=== PATIENT | male | born 1935 | race Caucasian/White ===

== ENCOUNTER 2019-11-16 14:11 | Inpatient (IN) | payer MEDICARE ==
[~2019-11-16] VITALS: Ht 180.3 cm; Wt 88.6 kg
[2019-11-16 15:03] LABS: BASO # 0.1 (0.0-0.2); EOS # 0.1 (0.0-0.7); EOS % 1.6 % (0-4.0); GRAN # 3.9 (1.4-6.5); GRAN % 68.9 % (42.2-75.2); HEMATOCRIT 41.7 % (42.0-52.0); HEMOGLOBIN 14.3 g/dl (13.5-18.0); LYMPH # 1.1 (1.2-3.4); LYMPH % 19.2 % (20.0-51.0); MEAN CELL VOLUME 101 fl (80.0-100.0); MEAN CORPUSCULAR HEMOGLOBIN 35 pg (27.0-31.0); MEAN CORPUSCULAR HGB CONC 34 g/dl (33.0-37.0); MEAN PLATELET VOLUME 10.9 fl (7.4-10.4); MONO # 0.5 (0.1-0.6); MONO % 9.1 % (1.7-9.3); PLATELET COUNT 177 K/mm3 (130-400); RED BLOOD COUNT 4.15 M/mm3 (4.20-5.60); REDCELL DISTRIBUTION WIDTH-CV 11.7 % (11.5-14.5)
[2019-11-16 15:06] LABS: ALANINE AMINOTRANSFERASE 29 U/L (21-72); ALBUMIN 4.6 gm/dL (3.5-5.0); ALKALINE PHOSPHATASE 100 U/L (50-136); ANION GAP 11 mmol/L (7-16); AST,SGOT 37 U/L (15-37); BILIRUBIN,TOTAL 0.8 mg/dL (0.0-1.0); BLOOD UREA NITROGEN 20 mg/dL (9-20); CALCIUM 9.4 mg/dL (8.4-10.2); CARBON DIOXIDE 21 mmol/L (22-30); CHLORIDE 110 mmol/L (98-107); CREATININE, serum 0.87 (0.66-1.25); GLUCOSE 93 mg/dL (74-106); POTASSIUM 3.7 mmol/L (3.4-5.0); SODIUM 142 mmol/L (137-145); TOTAL PROTEIN 7.1 gm/dL (6.4-8.2)
[2019-11-16 15:14] LABS: INR 1.1 (0.8-3.0); PROTHROMBIN TIME 12.8 SECONDS (9.7-12.8)
[2019-11-16 15:17] LABS: C-REACTIVE PROTEIN < 0.5 mg/dL (0.0-0.9); TROPONIN-I < 0.012 ng/mL (0.000-0.035)
[2019-11-16 15:20] LABS: D-DIMER < 200.00 ng/mLDDu (200-230)
[2019-11-16] MEDS ORDERED: ELIQUIS 5MG PO (17:01)
[2019-11-16] MEDS ORDERED: ZOLOFT 100MG100 MG PO (17:01)
[2019-11-16] MEDS ORDERED: SYNTHROID 0.10.15 MG PO (17:02)
[2019-11-16] MEDS ORDERED: AMBIEN 10MG10 MG PO (17:02)
--- NOTE | 2019-11-16 18:45 | NUR ---
Pt arrives to medical unit rm [id number] from ED, sitting up on side of bed, A&O x 4, requesting something to eat. Culinary support called.
[2019-11-16 18:55] VITALS: BP 115/83; PULSE 78; TEMP 98.3
--- NOTE | 2019-11-16 19:45 | NUR ---
Report to GINO Yeh. Pt sitting up in chair, denies needs. Pt reminded not to get up without assistance. Call light in reach.
[2019-11-16] MEDS ORDERED: SELENIUM200 MC5 (20:46)
[2019-11-16] MEDS ORDERED: VITAMIN B100 CO1 TAB (20:46)
[2019-11-16] MEDS ORDERED: MULTIPLE VITAMI1 CAP PO (20:47)
[2019-11-17] VITALS (7 sets, daily range): BP systolic 95–137; BP diastolic 46–73; PULSE 56–88; TEMP 97.7–98.5
--- NOTE | 2019-11-17 04:41 | NUR ---
Patient arrived to the floor just before shift change. 5 page and med-rec completed. Patient requests not having vitamins given to him while he is in the hospital d/t cost. Patient's medications sent to pharmacy. Complains of dizziness and that the room is spinning when he changes position, but its worse when he lies down. Bed alarm set. Patient states he can get up on his own and that he "will be fine". Education attempted to call, but patient has disregarded this. Ambulates with SBA with cane to bathroom. Complained of a headache and tylenol was administered. This was effective. Will continue to monitor.
--- NOTE | 2019-11-17 08:00 | NUR ---
PATIENT IS A&O. VSS. PATIENT REPORTS DIZZINESS WITH ACTIVITY. PATIENT DENIES DIZZINESS AT REST. PATIENT DENIES CHEST PAIN OR SOA. ECHO ORDERED FOR TODAY. TROPONINS ARE NEGATIVE. PATIENT HAS HX OF PE & DVT AND TAKES ELEQUIS. SR ON TELE IN THE 60'S. NEURO CHECKS WNL. LEFT WRIST IV TO INT. DNR. HEAD TO TOE WNL. PATIENT HOPING TO DISCHARGE TODAY. WAITING FOR PHYSICIANS TO ROUND.
--- NOTE | 2019-11-17 11:53 | NUR ---
JO-ANN met with the patient to discuss discharge plan. The patient lives alone in [place]. He states that he moved here from [place] a year and a half ago and has been staying at his [id number]'s home. He states that his [id number] now resides at [facility]. He reports independence with ADLs and has a cane. The patient does not have a PCP in [place], but he was interested in getting set up with one. JO-ANN informed the patient of the different clinics in [place]. The patient preferred a male PCP and was interested in [facility]. JO-ANN contacted [facility] and secured the patient an appointment with Dr. Ori Daniel on Wednesday, 11/24, at 1445. JO-ANN faxed the patient's records to [facility]. JO-ANN informed the director of community education, his PA-C, and the patient of the appointment. The patient receives his medications at [facility] and he reports no difficulties obtaining his meds. The patient does not have advanced directives in EMR, but he states that he does have them completed. He states that his DPOA-HC is his ex-, Faith ([phone]). He states that him and Faith are still in the process of divorce, but that he would still want her as his DPOA-HC, for now. The patient plans to return home upon discharge. No additional needs at this time.
[2019-11-17 12:33] LABS: BASO # 0.1 (0.0-0.2); BASO % 1.4 % (0.0-2.0); EOS # 0.1 (0.0-0.7); EOS % 2.9 % (0-4.0); GRAN # 2.6 (1.4-6.5); GRAN % 62.4 % (42.2-75.2); HEMATOCRIT 40.6 % (42.0-52.0); HEMOGLOBIN 13.9 g/dl (13.5-18.0); LYMPH # 0.9 (1.2-3.4); LYMPH % 21.3 % (20.0-51.0); MEAN CELL VOLUME 101 fl (80.0-100.0); MEAN CORPUSCULAR HEMOGLOBIN 35 pg (27.0-31.0); MEAN CORPUSCULAR HGB CONC 34 g/dl (33.0-37.0); MEAN PLATELET VOLUME 10.9 fl (7.4-10.4); MONO # 0.5 (0.1-0.6); MONO % 11.8 % (1.7-9.3); PLATELET COUNT 174 K/mm3 (130-400); RED BLOOD COUNT 4.01 M/mm3 (4.20-5.60); REDCELL DISTRIBUTION WIDTH-CV 11.7 % (11.5-14.5)
[2019-11-17 12:55] LABS: INR 1.2 (0.8-3.0); PROTHROMBIN TIME 13.7 SECONDS (9.7-12.8)
[2019-11-17 13:46] LABS: ALBUMIN 4.2 gm/dL (3.5-5.0); BILIRUBIN,TOTAL 0.8 mg/dL (0.0-1.0); CALCIUM 8.9 mg/dL (8.4-10.2); CREATININE, serum 0.87 (0.66-1.25); POTASSIUM 4.1 mmol/L (3.4-5.0); TOTAL PROTEIN 6.5 gm/dL (6.4-8.2)
--- NOTE | 2019-11-17 16:30 | NUR ---
PATIENT C/O ENNIS. GAVE PRN TYLENOL, TWO TABS.
--- NOTE | 2019-11-17 20:12 | NUR ---
Lying in bed on right side with eyes open. Patient says that he is tired and hopes to get sleep tonight. Denies any pain or needs at this time.
--- NOTE | 2019-11-17 20:19 | NUR ---
Sam administered per patient request for sleep aide. Denies further needs.
--- NOTE | 2019-11-17 23:38 | NUR ---
Lying in bed with eyes closed. Eyes open when name called out. Denies pain. Alert and oriented. Neuro checks normal. Patient ambulates to bathroom to void and then returns to bed. Denies any further needs at this time.
--- NOTE | 2019-11-18 00:58 | NUR ---
Lying in bed on left side with eyes closed. Respirations even and unlabored. No signs or symptoms of discomfort noted at this time.
[2019-11-18 03:30] VITALS: BP 94/46; PULSE 54; TEMP 98
--- NOTE | 2019-11-18 03:43 | NUR ---
Lying in bed with eyes closed. Opens eyes when name called out. Denies any pain or discomforts. Neuro checks remain normal. Patient denies needs at this time. Explains that he would like to get sleep at this time.
--- NOTE | 2019-11-18 05:27 | NUR ---
Lying in bed on right side with eyes open. Denies pain or any feeling of lightheadedness or dizziness. Patient denies any needs or concerns at this time.
[2019-11-18 07:14] VITALS: BP 121/64; PULSE 62; TEMP 98
[2019-11-18 08:47] LABS: BASO # 0.1 (0.0-0.2); BASO % 1.7 % (0.0-2.0); EOS # 0.2 (0.0-0.7); EOS % 4.4 % (0-4.0); GRAN # 2.8 (1.4-6.5); GRAN % 66.9 % (42.2-75.2); HEMATOCRIT 40.9 % (42.0-52.0); HEMOGLOBIN 13.8 g/dl (13.5-18.0); LYMPH # 0.6 (1.2-3.4); LYMPH % 14.5 % (20.0-51.0); MEAN CELL VOLUME 102 fl (80.0-100.0); MEAN CORPUSCULAR HEMOGLOBIN 35 pg (27.0-31.0); MEAN CORPUSCULAR HGB CONC 34 g/dl (33.0-37.0); MEAN PLATELET VOLUME 11.4 fl (7.4-10.4); MONO # 0.5 (0.1-0.6); MONO % 12.3 % (1.7-9.3); PLATELET COUNT 177 K/mm3 (130-400); REDCELL DISTRIBUTION WIDTH-CV 11.6 % (11.5-14.5)
[2019-11-18 08:48] LABS: CALCIUM 9.2 mg/dL (8.4-10.2); CREATININE, serum 0.91 (0.66-1.25); MAGNESIUM 1.9 mg/dL (1.6-2.3); POTASSIUM 4.2 mmol/L (3.4-5.0)
[2019-11-18 08:51] LABS: PROTHROMBIN TIME 12.2 SECONDS (9.7-12.8)
--- NOTE | 2019-11-18 10:09 | NUR ---
Pt awake and alert, talkative, steady gait using cane, shift assessments complete, no C/O pain at this time, left Pt call light in reach.
[2019-11-18 11:15] VITALS: BP 117/65; PULSE 61; TEMP 98
[2019-11-18 16:11] VITALS: BP 117/71; PULSE 63; TEMP 98.3
--- NOTE | 2019-11-18 16:30 | NUR ---
Pt has C/O minor headache, tylenol given for relief.
--- NOTE | 2019-11-18 18:10 | NUR ---
Pt resting in the room, ambulating in the room and hallway without issues using his cane, had mild headache early this afternoon medications given and relief obtained, VS have remained stable.
[2019-11-18 22:31] VITALS: BP 116/56; PULSE 59; TEMP 98.1
[2019-11-19 03:59] VITALS: BP 111/62; PULSE 60; TEMP 98.8
--- NOTE | 2019-11-19 05:23 | NUR ---
PT SLEEPING. PT DENIES PAIN, SYNCOPE OR SHORTNESS OF BREATH. NO N/V. INDEPENDENT IN ROOM.
[2019-11-19 07:38] VITALS: BP 116/64; PULSE 60; TEMP 98.7
[2019-11-19 08:30] LABS: BASO # 0.1 (0.0-0.2); BASO % 1.2 % (0.0-2.0); EOS # 0.1 (0.0-0.7); EOS % 2.9 % (0-4.0); GRAN # 3.5 (1.4-6.5); GRAN % 71.6 % (42.2-75.2); HEMATOCRIT 41.7 % (42.0-52.0); HEMOGLOBIN 14.2 g/dl (13.5-18.0); LYMPH # 0.6 (1.2-3.4); LYMPH % 13.2 % (20.0-51.0); MEAN CELL VOLUME 100 fl (80.0-100.0); MEAN CORPUSCULAR HEMOGLOBIN 34 pg (27.0-31.0); MEAN CORPUSCULAR HGB CONC 34 g/dl (33.0-37.0); MEAN PLATELET VOLUME 11.4 fl (7.4-10.4); MONO # 0.5 (0.1-0.6); MONO % 10.1 % (1.7-9.3); PLATELET COUNT 182 K/mm3 (130-400); RED BLOOD COUNT 4.16 M/mm3 (4.20-5.60); REDCELL DISTRIBUTION WIDTH-CV 11.7 % (11.5-14.5)
[2019-11-19 08:34] LABS: INR 1.1 (0.8-3.0); PROTHROMBIN TIME 12.8 SECONDS (9.7-12.8)
[2019-11-19 08:47] LABS: CALCIUM 9.3 mg/dL (8.4-10.2); CREATININE, serum 0.88 (0.66-1.25); POTASSIUM 4.2 mmol/L (3.4-5.0)
--- NOTE | 2019-11-19 09:01 | NUR ---
Pt awake and alert, up ambulating in the room, steady on his feet, talkative, expresses desire to return home, shift assessments complete.
[2019-11-19 12:07] VITALS: BP 125/61; PULSE 55
[2019-11-19] MEDS ORDERED: BETAPACE 80MG80 MG PO (14:01)
--- NOTE | 2019-11-19 14:53 | NUR ---
Pt discharged to home, escorted to entrance, Pt left via private transportation.
== END 2019-11-19 14:54 | disposition home or self-care (01) | DRG 310 ==
LOC: COL.ER 14:11 → MEDICAL 16:17
PROVIDERS: Emergency Medicine; Nurse Practitioner; Physician Assistant; ADMIT Hospitalist
DX: I48.0 Paroxysmal atrial fibrillation (principal); E89.0 Postprocedural hypothyroidism; R07.89 Other chest pain; Z86.711 Personal history of pulmonary embolism; Z86.718 Personal history of other venous thrombosis and embolism; Z90.49 Acquired absence of other specified parts of digestive tract; Z85.72 Personal history of non-Hodgkin lymphomas; Z79.01 Long term (current) use of anticoagulants; Z87.891 Personal history of nicotine dependence; Z88.2 Allergy status to sulfonamides; Z95.828 Presence of other vascular implants and grafts
CPT/HCPCS: 99232-AI; 99233-AI; G0378; J2060; J7030

== ENCOUNTER 2020-09-21 09:29 | Observation (INO) | payer MEDICARE ==
[~2020-09-21] VITALS: Ht 180.3 cm; Wt 86.5 kg
[~2020-09-21 09:29] MED LIST: AMBIEN 10MG10 MG PO; ASPIRIN 81M81 MG/TA2 PO; BETAPACE 80MG80 MG PO; BRILINTA90 MG PO; COUMADIN 5MG5 MG/TAB PO; ELIQUIS 5MG PO; LIPITOR 40MG TA40 MG PO; MULTIPLE VITAMI1 TA5 PO; SELENIUM200 MC5; SYNTHROID 0.10.15 MG PO; VANCOCIN H125 MG/CAP PO; VITAMIN B100 CO1 TAB; ZOLOFT 100MG100 MG PO
[2020-09-21 10:20] LABS: HEMATOCRIT 38.6 % (42.0-52.0); HEMOGLOBIN 12.9 g/dl (13.5-18.0); MEAN CELL VOLUME 102 fl (80.0-100.0); MEAN CORPUSCULAR HEMOGLOBIN 34 pg (27.0-31.0); MEAN CORPUSCULAR HGB CONC 33 g/dl (33.0-37.0); MEAN PLATELET VOLUME 10.7 fl (7.4-10.4); PLATELET COUNT 207 K/mm3 (130-400); RED BLOOD COUNT 3.78 M/mm3 (4.20-5.60)
[2020-09-21 10:35] LABS: ALBUMIN 3.9 gm/dL (3.5-5.0); BILIRUBIN,TOTAL 1.2 mg/dL (0.0-1.0); CALCIUM 8.6 mg/dL (8.4-10.2); CREATININE, serum 0.98 (0.66-1.25); POTASSIUM 3.9 mmol/L (3.4-5.0); TOTAL PROTEIN 6.6 gm/dL (6.4-8.2)
[2020-09-21 10:43] LABS: BAND 47 % (0-10); LYMPHOCYTE 4 % (20.0-51.0); NEUTROPHILS 40 % (42.0-75.2)
[2020-09-21 10:44] LABS: PLATELET ESTIMATE NORMAL (NORMAL); TOXIC GRANULATION PRESENT
[2020-09-21 10:51] LABS: C-REACTIVE PROTEIN 15.9 mg/dL (0.0-0.9)
[2020-09-21 11:04] LABS: COLLECTION METHOD CLEAN CATCH
[2020-09-21 11:20] LABS: MUCOUS Present /lpf; PH 5 (5-8); SQUAMOUS EPITHELIAL 0-2 /hpf; URINE APPEARANCE Hazy; URINE BACTERIA None Seen /hpf; URINE BILIRUBIN Negative (NEGATIVE); URINE BLOOD Negative (NEGATIVE); URINE COLOR Yellow; URINE GLUCOSE Negative (NEGATIVE); URINE KETONE 1+ (NEGATIVE); URINE LEUKOCYTE ESTERASE Negative (NEGATIVE); URINE NITRATE Negative (NEGATIVE); URINE PROTEIN(semi-quant) Negative (NEGATIVE); URINE RBC 0-2 /hpf; URINE UROBILINOGEN Negative (NEGATIVE)
[2020-09-21 12:15] LABS: INR 1.8 (0.8-3.0); PROTHROMBIN TIME 20.2 SECONDS (9.7-12.8)
[2020-09-21 14:37] LABS: CLOSTRIDIUM DIFF A/B NEG; CLOSTRIDIUM DIFF A/B INTERP NonToxigenic C.diff
--- NOTE | 2020-09-21 15:00 | NUR ---
Patient up from ER, alert and oriented x 3. Patient oriented to room. Assessment complete. Denies pain at this time. Patient up to restroom, having loose green stools. Steady gait with walker. Denies further needs at this time. INT to LAC noted.
[2020-09-21 15:14] VITALS: BP 115/54; PULSE 73; TEMP 97.9
--- NOTE | 2020-09-21 18:53 | NUR ---
Patient has done well since up from ER. Has been up to comode multiple times, having green stool. Fluids infusing per orders. Denies pain or further needs at this time. Will report off to shift manager.
[2020-09-22 06:21] VITALS: BP 112/55; PULSE 73; TEMP 98.1
[2020-09-22 07:38] VITALS: BP 115/46; PULSE 74; TEMP 97.2
--- NOTE | 2020-09-22 08:33 | NUR ---
PT IN CONTACT ISOLATION WITH HX OF MRSA. HAVING VERY LOOSE MUCOUSY DARK GREEN BM'S. UP SEVERAL TIMES DURING THE NIGHT WITH THE LAST TWO TIMES HAVING NO BM'S JUST URINE. TELE ON. NS INFUSING IN R AC AT 125ML/HR. TAKES DIET WELL. SM SKIN ABRASION ON RIGHT KNEE. CALL LIGHT IN REACH. BED ALARM ON DURING THIS SHIFT.
[2020-09-22 09:31] LABS: BASO % 0.4 % (0.0-2.0); EOS # 0.2 (0.0-0.7); EOS % 3.1 % (0-4.0); GRAN # 5.2 (1.4-6.5); GRAN % 77.4 % (42.2-75.2); LYMPH # 0.6 (1.2-3.4); LYMPH % 8.1 % (20.0-51.0); MEAN CELL VOLUME 104 fl (80.0-100.0); MEAN CORPUSCULAR HGB CONC 32 g/dl (33.0-37.0); MEAN PLATELET VOLUME 10.5 fl (7.4-10.4); MONO # 0.7 (0.1-0.6); MONO % 10.7 % (1.7-9.3); PLATELET COUNT 161 K/mm3 (130-400); RED BLOOD COUNT 3.14 M/mm3 (4.20-5.60); REDCELL DISTRIBUTION WIDTH-CV 13.2 % (11.5-14.5)
[2020-09-22 09:33] LABS: CALCIUM 7.9 mg/dL (8.4-10.2); CREATININE, serum 0.89 (0.66-1.25); POTASSIUM 3.3 mmol/L (3.4-5.0)
[2020-09-22 09:42] LABS: HEMATOCRIT 32.5 % (42.0-52.0); HEMOGLOBIN 10.5 g/dl (13.5-18.0); MEAN CORPUSCULAR HEMOGLOBIN 33 pg (27.0-31.0)
[2020-09-22 09:45] LABS: TROPONIN-I 0.017 ng/mL (0.000-0.035)
--- NOTE | 2020-09-22 10:42 | NUR ---
SW met with patient to complete intake. Patient states that he currently lives in [place] at his brother in laws home due to his of 40 plus years no longer wanting to be to him. Patient provides that his is still documented as his DP-HC [facility] [phone] and that he would like to leave it that way for the time being. Patient states that he has only used a walker the last few days and does not know how much longer he will need to use it, but will use it as long as he needs to since the walker he currently has is his sister's that has . Patient states that he is independent with ADL's, PCP is Dr. Funes, pharmacy is [email or web address]. Patient states that his plan his to go back to his brother in -laws home here in [place] up discharge. Patient states that his brother in law utilizes a HH service and didn't know if he would need that service upon DC. SW provided list of HH agencies to review. Patient provided that he did not want to make a choice yet on a service if needed, but wanted to check with his brother in law to see which one he uses. Patient stated he would contact SW to let them know. SW will continue to follow.
[2020-09-22 11:52] VITALS: BP 127/58; PULSE 64; TEMP 98.4
[2020-09-22 15:26] VITALS: BP 122/62; PULSE 69; TEMP 97.6
[2020-09-22 19:55] VITALS: BP 118/68; PULSE 70; TEMP 98
[2020-09-22 23:33] VITALS: BP 115/54; PULSE 62; TEMP 98.1
--- NOTE | 2020-09-23 03:33 | NUR ---
PT HAD SEVERAL SMALL LOOSE STOOLS. TRAMADOL AND TYLENOL FOR LEFT HIP DISCOMFORT. UP TO TOILET WITH STANDBY ASSIST.
[2020-09-23 04:00] VITALS: BP 109/51; PULSE 69; TEMP 98.3
[2020-09-23 06:47] LABS: HEMATOCRIT 31.4 % (42.0-52.0); HEMOGLOBIN 10.3 g/dl (13.5-18.0); MEAN CELL VOLUME 102 fl (80.0-100.0); MEAN CORPUSCULAR HEMOGLOBIN 34 pg (27.0-31.0); MEAN CORPUSCULAR HGB CONC 33 g/dl (33.0-37.0); MEAN PLATELET VOLUME 11.4 fl (7.4-10.4); PLATELET COUNT 162 K/mm3 (130-400); RED BLOOD COUNT 3.07 M/mm3 (4.20-5.60)
[2020-09-23 07:00] LABS: CREATININE, serum 0.8 (0.66-1.25); MAGNESIUM 1.8 mg/dL (1.6-2.3); POTASSIUM 3.4 mmol/L (3.4-5.0)
[2020-09-23 07:07] LABS: BAND 11 % (0-10); BASOPHIL 1 % (0-2); EOSINOPHIL 3 % (0-4); LYMPHOCYTE 9 % (20.0-51.0); NEUTROPHILS 62 % (42.0-75.2); PLATELET ESTIMATE NORMAL (NORMAL)
[2020-09-23 07:23] VITALS: BP 125/60; PULSE 73; TEMP 97.6
--- NOTE | 2020-09-23 08:00 | NUR ---
PATIENT IS A&O. VSS WITH TELE INPLACE. PATIENT C/O LEFT HIP PAIN FROM HX OF FALLS. GAVE PRN ULTRAM & TYLENOL WITH AM MEDS. PATIENT UP TO BEDSIDE COMMODE WITH STAND BY ASSIST. NOTED SOFT, SEMI-FORMED STOOL. ABD IS ROUND, SOFT AND WITH POSITIVE BOWL SOUNDS. HEAD TO TOE ASSESSMENT COMPLETE. NOTED +1 BLE EDEMA WHICH PATIENT REPORTS IS CHRONIC FOR HIM. PT/OT CONSULTED. SOCICAL SERVICES WORKING ON PLACEMENT.
--- NOTE | 2020-09-23 11:09 | NUR ---
Television Picture Tube Rebuilder attended clinical rounds with the team. The patient was agreeable to sending referrals for post acute rehab. His first choice is [facility]. Referrals also sent to [facility], and [facility]. SW informed facilites of the referral.
[2020-09-23 11:11] VITALS: BP 114/63; PULSE 71; TEMP 97.4
--- NOTE | 2020-09-23 13:40 | NUR ---
PATIENT CALLED OUT C/O NAUSEA, WEAKNESS & SHAKING. CALLED AND GAVE PATIENT STATUS UPDATE TO HOSPITALIST. GAVE PRN ZOFRAN, PER NEW ORDERS. PATIENT BACK INTO BED. WARM BLANKET APPLIED. VSS. AFEBRILE. PREVIOUS C-DIFF TOXIN NEGATIVE, C-DIFF ANTIGEN POS.
[2020-09-23 15:53] VITALS: BP 116/52; PULSE 90; TEMP 99
--- NOTE | 2020-09-23 16:18 | NUR ---
Dunia from [facility] reports they can accept the patient but will need the PCR COVID19 test. SW collaborated the above information with the hospitalist and the patient's nurse.
--- NOTE | 2020-09-23 16:50 | NUR ---
PATIENT STILL STATING HE DOESN'T FEEL THE BEST. PATIENT REPORTS HE IS STILL WEAK AND HAVING LOOS STOOLS AGAIN. SEE ORDERS FOR PO ANTIBIOTIC
[2020-09-23 20:12] VITALS: BP 107/39; PULSE 88; TEMP 99.9
--- NOTE | 2020-09-23 20:20 | NUR ---
PT ASSISTED TO BSC FOR SMALL LOOSE GELATINOUS STOOL. IS WEAK WITH TRANSFER. BACK TO BED WITH ONE ASSIST.
--- NOTE | 2020-09-23 21:00 | NUR ---
Patient complained of not getting her bedtime dose of Gabapetin while in the hospital and it causing her a lot of pain in her feet. Patient having trouble walking due to pain. Called and she is not getting her night dose due to renal dosing. Gave patient tylenol for her feet.
--- NOTE | 2020-09-23 22:00 | NUR ---
Patient up to bedside commode but incontinent in breif. Stools are gelatinous. Patient is weak and having a lot of pain in his hip. Gave patient tramadol for his pain.
[2020-09-24] VITALS (7 sets, daily range): BP systolic 101–124; BP diastolic 46–78; PULSE 56–81; TEMP 97.1–98.8
--- NOTE | 2020-09-24 06:21 | NUR ---
Patient incontinent of bowel a few times throughout the night. patient up to the bedside commode to get cleaned up. Stool is green and gel- textured.
[2020-09-24 06:33] LABS: INR 2.6 (0.8-3.0); PROTHROMBIN TIME 28.8 SECONDS (9.7-12.8)
[2020-09-24 06:44] LABS: CALCIUM 8.3 mg/dL (8.4-10.2); CREATININE, serum 0.72 (0.66-1.25); POTASSIUM 3.7 mmol/L (3.4-5.0)
--- NOTE | 2020-09-24 16:41 | NUR ---
Solid Waste Engineer faxed updates to Dunia at [facility].
--- NOTE | 2020-09-24 18:54 | NUR ---
SEE PATIENTS SHIFT ASSESSMENT. CONTACT/DROPLET PRECAUTIONS IN PLACE DURING DAY. PATIENT REPORTS PAIN IN THE LEFT HIP ONLY WITH MOVEMENT THAT GOES AWAY WHEN HE IS AT REST. PATIENTS PAIN WAS WELL CONTROLLED WITH PO TRAMADOL. BEDSIDE REPORT GIVEN TO ONCOMING NURSE. PATIENT CURRENTLY RESTING IN BED. CALL LIGHT WITHIN REACH.
--- NOTE | 2020-09-24 23:12 | NUR ---
Patient up to bedisde commode several times tonight. Patient seems to be not as weak as yesterday. Stools are still liquidy. Patient states he is not in any pain unless he moves his hip.
[2020-09-25] VITALS: BP 108/56; PULSE 66; TEMP 97.7
[2020-09-25 04:11] VITALS: BP 120/71; PULSE 63; TEMP 97.4
--- NOTE | 2020-09-25 04:58 | NUR ---
Patient up to bedside commode. Patient continent of stool. Patient's vitals are stable and no complaints of pain.
[2020-09-25 06:07] LABS: HEMOGLOBIN 10.5 g/dl (13.5-18.0); MEAN CELL VOLUME 103 fl (80.0-100.0); MEAN CORPUSCULAR HEMOGLOBIN 34 pg (27.0-31.0); MEAN CORPUSCULAR HGB CONC 33 g/dl (33.0-37.0); MEAN PLATELET VOLUME 11.3 fl (7.4-10.4); PLATELET COUNT 160 K/mm3 (130-400)
[2020-09-25 06:21] LABS: CALCIUM 7.9 mg/dL (8.4-10.2); CREATININE, serum 0.72 (0.66-1.25); POTASSIUM 3.6 mmol/L (3.4-5.0)
[2020-09-25 06:58] LABS: BAND 17 % (0-10); EOSINOPHIL 9 % (0-4); LYMPHOCYTE 13 % (20.0-51.0); NEUTROPHILS 46 % (42.0-75.2); PLATELET ESTIMATE NORMAL (NORMAL)
[2020-09-25 07:17] VITALS: BP 125/60; PULSE 70; TEMP 97.3
[2020-09-25 12:23] VITALS: BP 98/46; PULSE 75; TEMP 97.5
[2020-09-25] MEDS ORDERED: VANCOCIN H125 MG/CAP PO (13:29)
[2020-09-25 14:43] VITALS: BP 98/46; PULSE 75; TEMP 97.5
--- NOTE | 2020-09-25 15:45 | NUR ---
Patient has done well throughout the day, has been up to restroom multiple times today, states he is still having some loose stools but not as frequently as previous days. States he does feel better today. Encouraged patient to increase fluid intake throughout the day, fluids infusing throughout the day. Patient denies pain. Has been up ambulating in room with steady gait and walker. Denies further needs at this time. Patient out by wheelchair to [facility].
== END 2020-09-25 15:45 ==
LOC: COL.ER 09:29 → SURG 12:28
PROVIDERS: Family Medicine; Hospitalist; Student in an Organized Health Care Education/Training Program; ADMIT Student in an Organized Health Care Education/Training Program
DX: A04.71 Enterocolitis due to Clostridium difficile, recurrent (principal); I48.91 Unspecified atrial fibrillation; E03.9 Hypothyroidism, unspecified; Z86.718 Personal history of other venous thrombosis and embolism; I25.10 Atherosclerotic heart disease of native coronary artery without angina pectoris; Z95.5 Presence of coronary angioplasty implant and graft; F32.9 Major depressive disorder, single episode, unspecified; Z86.711 Personal history of pulmonary embolism; D64.9 Anemia, unspecified; E87.6 Hypokalemia; E87.1 Hypo-osmolality and hyponatremia; G47.00 Insomnia, unspecified; Z20.828 Contact with and (suspected) exposure to other viral communicable diseases; Z85.72 Personal history of non-Hodgkin lymphomas; Z88.2 Allergy status to sulfonamides
CPT/HCPCS: G0378; J2405; J7030; J7120